=== PATIENT | female | born 1975 | race Caucasian/White ===

== ENCOUNTER → 2021-12-21 | Outpatient (CLI) | payer OTHER | END | disposition home or self-care (01) | LOC: RAH 10:17 | PROVIDERS: ATTEND Neurological Surgery | DX: M41.9 Scoliosis, unspecified (principal); M41.35 Thoracogenic scoliosis, thoracolumbar region | CPT/HCPCS: 72082 ==

== ENCOUNTER → 2022-04-08 | Outpatient (CLI) | payer OTHER | END | disposition home or self-care (01) | LOC: RAH 12:04 | PROVIDERS: ATTEND Neurological Surgery | DX: M50.121 Cervical disc disorder at C4-C5 level with radiculopathy (principal); M48.02 Spinal stenosis, cervical region | CPT/HCPCS: 72141 ==

== ENCOUNTER 2022-05-21 05:30 | Observation (INO) | payer OTHER ==
[2022-05-16 13:25] LABS: BASOPHILS % (AUTO) 1.3 % (0.0-5.0); EOSINOPHILS % (AUTO) 2.8 % (0.0-8.0); HEMATOCRIT 40.9 % (36-48); LYMPHOCYTES % (AUTO) 26.8 % (21.0-51.0); MEAN CORPUSCULAR HEMOGLOBIN 30.4 pg (27.0-33.0); MEAN CORPUSCULAR HGB CONC 31.8 g/dL (32.0-36.0); MEAN CORPUSCULAR VOLUME 95.6 fL (79-99); MONOCYTES % (AUTO) 9.7 % (3.0-13.0); NEUTROPHILS % (AUTO) 59.3 % (40.0-77.0); PLATELET COUNT (AUTO) 337 K/uL (130-400); RED BLOOD CELL COUNT(AUTO) 4.28 MIL/uL (4.00-5.50); RED CELL DISTRIBUTION WIDTH 14.1 % (11.0-15.5); WHITE BLOOD COUNT (AUTO) 6.7 K/uL (4.8-10.8)
[2022-05-16 13:35] LABS: INR 0.93 (0.85-1.15); PROTHROMBIN TIME 10.1 SEC (9.6-11.6)
[2022-05-16 13:37] LABS: PARTIAL THROMBOPLASTIN TIME 24.9 SEC (26.3-35.5)
[2022-05-16 14:08] LABS: APPEARANCE,URINE CLEAR (CLEAR); BILIRUBIN,URINE NEGATIVE (NEGATIVE); COLOR,URINE YELLOW (YELLOW); GLUCOSE, URINE (UA) NEGATIVE (NEGATIVE); KETONES,URINE NEGATIVE (NEGATIVE); LEUKOCYTE ESTERASE ,URINE NEGATIVE Leu/uL (NEGATIVE); NITRATE,URINE NEGATIVE (NEGATIVE); OCCULT BLOOD,URINE NEGATIVE (NEGATIVE); PROTEIN,URINE NEGATIVE (NEGATIVE); UROBILINOGEN,URINE 0.2 mg/dL (0.2-1.0)
[2022-05-17 12:17] VITALS: BP 97/72
[2022-05-21] VITALS (30 sets, daily range): BP systolic 85–138; BP diastolic 48–92
[~2022-05-21] VITALS: Ht 170.2 cm; Wt 56.7 kg
[~2022-05-21 05:30] MED LIST: LINA145C PO
[2022-05-21] MEDS ORDERED: LACTATED RINGERS 1000ML 1,000 ML IV ONE (06:16)
[2022-05-21] MEDS ORDERED: CEFAZOLIN SODIUM 1 GM VIAL ONE (06:17)
[2022-05-21] MEDS ORDERED: LIDOCAINE PF 100MG/5ML (2%) SYRINGE 5ML ONE (06:54)
[2022-05-21] MEDS ORDERED: DEXAMETHASONE SOD PHOSPHATE 10MG/ML 1ML VIAL ONE (06:54)
[2022-05-21] MEDS ORDERED: PROPOFOL 10 MG/ML 20ML VIAL IV ONE (06:54)
[2022-05-21] MEDS ORDERED: MIDAZOLAM HCL 1 MG/ML 2ML VIAL ONE ×2 (06:54→07:24)
[2022-05-21] MEDS ORDERED: ONDANSETRON 4MG INJ ONE ×3 (06:54→10:46)
[2022-05-21] MEDS ORDERED: GLYCOPYRROLATE 1 MG/5 ML SYRINGE ONE (06:54)
[2022-05-21] MEDS ORDERED: SUCCINYLCHOLINE 200MG/10ML SYR ONE (06:54)
[2022-05-21] MEDS ORDERED: NEOSTIGMINE 5MG/5ML SYR IV ONE (06:54)
[2022-05-21] MEDS ORDERED: ROCURONIUM 10MG/1ML SYR 10 MG/ML ML ONE ×2 (06:55→09:03)
[2022-05-21] MEDS ORDERED: FENTANYL CITRATE PF 50 MCG/1 ML 2ML VIAL ONE ×3 (06:55→09:04)
[2022-05-21] MEDS ORDERED: PHENYLEPHRINE HCL 10 MG/ML 1ML VIAL IV ONE (07:00)
[2022-05-21] MEDS ORDERED: MIDAZOLAM HCL 1 MG/ML 2ML VIAL IVP ONE (07:30)
[2022-05-21] MEDS ORDERED: CEFAZOLIN SODIUM 2 GM VIAL IVP ONE (08:09)
[2022-05-21] MEDS ORDERED: EPHEDRINE SULFATE 50 MG/ML AMPULE ONE (08:17)
[2022-05-21] MEDS ORDERED: KETOROLAC 30MG VIAL (30MG/ML) ONE (10:46)
[2022-05-21] MEDS ORDERED: MEPERIDINE-PF 25 MG/ML SYG ONE ×2 (10:47→11:06)
[2022-05-21] MEDS ORDERED: PROMETHAZINE HCL 25 MG/ML 1ML AMPULE IM PRN (12:00)
[2022-05-21] MEDS ORDERED: IBUPROFEN 600 MG TABLET PO PRN (12:00)
[2022-05-21] MEDS ORDERED: ONDANSETRON 4MG INJ IVP PRN (12:00)
[2022-05-21] MEDS ORDERED: BISACODYL 10 MG SUPP.RECT RC PRN (12:00)
[2022-05-21] MEDS ORDERED: ACETAMINOPHEN WITH CODEINE 1 TAB TAB PO PRN (12:00)
[2022-05-21] MEDS: PROMETHAZINE HCL 25 MG/ML 1ML AMPULE IM PRN ×2 (12:06→19:57)
[2022-05-21] MEDS: DEXTROSE 5 %-0.45 % NACL 1,000 ML IV PRN ×2 (12:07→19:47)
[2022-05-21] MEDS: MEPERIDINE-PF 75 MG/ML SYG IM PRN ×2 (12:07→19:58)
[2022-05-21] MEDS: DOCUSATE SODIUM 100 MG CAP PO PRN (19:58)
[2022-05-21] MEDS: SIMETHICONE 80 MG TAB.CHEW PO PRN (19:58)
[2022-05-22 02:58] VITALS: BP 93/61
[2022-05-22] MEDS: DEXTROSE 5 %-0.45 % NACL 1,000 ML IV PRN (03:37)
[2022-05-22 05:39] LABS: HEMATOCRIT 34.5 % (36-48); MEAN CORPUSCULAR HEMOGLOBIN 30.9 pg (27.0-33.0); MEAN CORPUSCULAR HGB CONC 32.5 g/dL (32.0-36.0); MEAN CORPUSCULAR VOLUME 95.3 fL (79-99); RED BLOOD CELL COUNT(AUTO) 3.62 MIL/uL (4.00-5.50); RED CELL DISTRIBUTION WIDTH 13.8 % (11.0-15.5); WHITE BLOOD COUNT (AUTO) 13.1 K/uL (4.8-10.8)
[2022-05-22] MEDS ORDERED: IBUPROFEN 800 MG TAB PO PRN (06:00)
[2022-05-22] MEDS ORDERED: HYDROCODONE/ACETAMINOPHEN 5/325 MG TAB PO PRN (06:00)
[2022-05-22] MEDS ORDERED: ACETAMINOPHEN WITH CODEINE 1 TAB TAB PO PRN (06:00)
[2022-05-22 07:29] VITALS: BP 100/59
[2022-05-22] MEDS: DOCUSATE SODIUM 100 MG CAP PO PRN (08:54)
[2022-05-22] MEDS: SIMETHICONE 80 MG TAB.CHEW PO PRN (08:54)
[2022-05-22 11:18] VITALS: BP 98/55
== END 2022-05-22 11:05 | disposition home or self-care (01) ==
LOC: DAH 05:30 → INTOOBSV 05:31 → DAHIP 05:31 → OBSVTOIN 05:31 → DAH 05:31 → WSH 11:30
PROVIDERS: ADMIT Obstetrics & Gynecology; ATTEND Obstetrics & Gynecology
DX: N92.1 Excessive and frequent menstruation with irregular cycle (principal); Z20.822 Contact with and (suspected) exposure to COVID-19; D25.9 Leiomyoma of uterus, unspecified; N80.9 Endometriosis, unspecified; K46.9 Unspecified abdominal hernia without obstruction or gangrene; Z79.899 Other long term (current) drug therapy
CPT/HCPCS: 84703; 85025; 85610; 85730; 86850 ×2; 86900 ×2; 86901 ×2; 87426; 81003; 36415 ×3; 58552; 57268; 96372; 81025; 85027; A6260; A4663; J7030; A4606; A4344; J7120; J3010 ×3; J0690 ×2; J0330; J3490 ×2; J1100; J2710; J2550 ×2; J2001; J2250 ×2; J2704; J2405 ×3; J1885; J2175 ×4; J2370; C1769 ×2; A4649 ×2; A4215 ×2; A4223; A4222; A4221; A4600; L0625; G0378 ×4; 96374